=== PATIENT | female | born 1975 | race Caucasian/White ===

== ENCOUNTER 2016-04-07 16:40 | Emergency (ER) | payer MEDICAID ==
[~2016-04-07] VITALS: Wt 53.8 kg
[~2016-04-07 16:40] MED LIST: ACET500C5 PO; FAMO-18 PO
[2016-04-07] MEDS ORDERED: predniSONE 20 MG TAB PO STA (17:19)
[2016-04-07] MEDS ORDERED: LEVALBUTEROL (NEB) 1.25 MG/0.5 ML AMP INH STA (17:19)
[2016-04-07] MEDS ORDERED: IPRATROPIUM (NEB) 0.5 MG/2.5 ML AMP INH STA (17:19)
--- NOTE | 2016-04-07 17:26 | ERD ---
ER Documentation Chief Complaint Date/Time DATE: 04/07/16 TIME: 17:23 Chief Complaint COUGH, ONSET 2 WEEKS, SOB, HX OF ASTHMA HPI This is a 40-year-old female who presents to the emergency department today complaining of a cough for the past 2 weeks. Patient states that she also has wheezing and has a history of asthma when she gets sick. States she went to her doctor who gave her Cipro for possible pneumonia. Denies any fevers or chills. ROS All systems reviewed and are negative except as per history of present illness. Medications Home Meds Active Scripts Guaifenesin-Dextromethorphan* (Robitussin* DM) 100MG/10MG/5ML Syrup, 10 ML PO Q6H Y for COUGH for 5 Days, ML Prov:DESI PEREZ PA-C 04/07/16 Azithromycin* (Zithromax*) 250 Mg Tablet, 250 MG PO .ZPACK DIRECTED, #6 TAB TAKE 500 MG (2 TABS) THE FIRST DAY THEN 250 MG (1 TAB) DAYS 2-5 Prov:DESI PEREZ PA-C 04/07/16 Prednisone* (Prednisone*) 20 Mg Tab, 40 MG PO DAILY for 4 Days, TAB Prov:DEIS PEREZ PA-C 04/07/16 Albuterol Sulfate* (Proair HFA*) 8.5 Gm Hfa.aer.ad, 2 PUFF INH Q4, #1 INHALER Prov:DESI PEREZ PA-C 04/07/16 Famotidine* (Pepcid*) 20 Mg Tablet, 20 MG PO BID for 10 Days, #20 TAB Prov:ERIC CHRISTIANSON MD 09/08/15 Acetaminophen* (Tylophen*) 500 Mg Capsule, 1 CAP PO Q6H Y for PAIN AND OR ELEVATED TEMP, #16 CAP Prov:ERIC CHRISTIANSON MD 09/08/15 Reported Medications [none] Unknown Strength No Conflict Check 06/05/15 Allergies Allergies: Coded Allergies: No Known Allergy (Unverified , 03/02/14) PMhx/Soc Medical and Surgical Hx: pt denies Medical Hx, pt denies Surgical Hx History of Surgery: No Anesthesia Reaction: No Hx Neurological Disorder: No Hx Respiratory Disorders: No Hx Cardiac Disorders: No Hx Psychiatric Problems: No Hx Miscellaneous Medical Probl: No Hx Alcohol Use: No Hx Substance Use: No Hx Tobacco Use: No Smoking Status: Never smoker Physical Exam Vitals Vital Signs Date Time Temp Pulse Resp B/P Pulse Ox O2 Delivery O2 Flow Rate FiO2 04/07/16 17:30 91 21 95 21 04/07/16 16:42 97.7 123 18 150/63 97 Physical Exam Const: No acute distress Head: Atraumatic Eyes: Normal Conjunctiva ENT: Ears TMs normal. Nose no drainage. Throat no erythema no exudate. Neck: Full range of motion..~ No meningismus. Resp: Diffuse wheezing bilaterally in all lung jaquez. Cardio: Regular rate and rhythm, no murmurs Abd: Soft, non tender, non distended. Normal bowel sounds Skin: No petechiae or rashes Ext: No cyanosis, or edema. No calf pain. Neur: Awake and alert Psych: Normal Mood and Affect Results 24 hrs Current Medications Medications (Trade) Dose Ordered Sig/Laureen Route PRN Reason Start Time Stop Time Status Last Admin Dose Admin Levalbuterol (Xopenex Neb) 5 mg ONCE STAT INH 04/07/16 17:19 04/07/16 17:21 DC 04/07/16 17:27 Ipratropium [place] (Atrovent 0.02% (Neb)) 1 mg ONCE STAT INH 04/07/16 17:19 04/07/16 17:21 DC 04/07/16 17:26 Prednisone (Prednisone) 60 mg ONCE STAT PO 04/07/16 17:19 04/07/16 17:21 DC 04/07/16 17:30 DIAGNOSTIC IMAGING REPORT Patient: GERALD PAREKH : 1975 Age: 40 Sex: F MR #: [id number] DOS: 04/07/16 1719 Ordering MD: DESI PEREZ PA-C Location: [facility] Room/Bed: PROCEDURE: XR Chest. CLINICAL INDICATION: Asthma/exacerbation TECHNIQUE: Chest AP portable. COMPARISON: No comparison available. FINDINGS: The mediastinal structures are unremarkable. The heart is normal in size and configuration. The pulmonary vascularity is normal. The lung jaquez are unremarkable. No consolidation is identified. The pleural spaces are unremarkable. The axial skeleton is unremarkable. IMPRESSION: No active intrathoracic disease. RPTAT: HGDB .Nolan Vang MD, Date Time Electronically viewed and signed by .Nolan Vang MD, on 04/07/2016 17:54 .B/ CC: DESI PEREZ PA-C Procedures/MDM This a 40-year-old female who presents to the emergency department today complaining of cough for the past 2 weeks. Patient did see her primary care doctor who gave her Cipro to treat possible pneumonia. I saw this patient in the rapid medical evaluation area and she had wheezing on physical exam therefore I did do a full workup on her as well as give the patient a 1 hour continuous breathing treatment in addition to prednisone.. Chest x-ray is negative. Low suspicion for PE, pleural effusion, abscess. Patient is afebrile and her oxygen saturation is 97%. She is tachycardic at 123. Patient symptoms and wheezing were completely resolved after breathing treatment. Patient symptoms at this time was consistent with acute asthma exacerbation versus chronic bronchitis versus viral URI. Patient was given a prescription for azithromycin, short course of prednisone as well as an inhaler and Robitussin for cough. At this time the patient is stable for discharge and outpatient management. Patient should follow up with their PCP in the next 1-2 days. They may return to the emergency department sooner for any persistent or worsening of symptoms. Patient understood and agreed with the plan. Departure Diagnosis: Primary Impression: Cough Condition: Fair DESI PEREZ PA-C Apr 07, 2016 17:26
--- NOTE | 2016-04-07 17:55 | RADRPT ---
PROCEDURE: XR Chest. CLINICAL INDICATION: Asthma/exacerbation TECHNIQUE: Chest AP portable. COMPARISON: No comparison available. FINDINGS: The mediastinal structures are unremarkable. The heart is normal in size and configuration. The pu lmonary vascularity is normal. The lung jaquez are unremarkable. No consolidation is identified. The pleural spaces are unremarkable. The axial skeleton is unremarkable. IMPRESSION: No active intrathoracic disease. RPTAT: HGDB .Nolan Vang MD, MD Date Time Electronically viewed and signed by .Nolan Vang MD, MD on 04/07/2016 17:54 .B/
[2016-04-07] MEDS ORDERED: ALBU8.5H3 INH (18:34)
[2016-04-07] MEDS ORDERED: AZIT250T94 PO (18:34)
[2016-04-07] MEDS ORDERED: PRED20TA PO (18:34)
[2016-04-07] MEDS ORDERED: UDROBDM PO (18:36)
[2016-04-07 18:42] VITALS: BP 136/79; PULSE 99; RESP 19
== END 2016-04-07 18:43 | disposition home or self-care (01) ==
LOC: FTE 16:40
DX: R05 Cough (principal)
CPT/HCPCS: 71010; 94644; J7512; Z7502; Z7610

== ENCOUNTER 2017-03-02 20:23 | Emergency (ER) | END 2017-03-03 01:22 | disposition home or self-care (01) ==

== ENCOUNTER 2017-03-30 08:14 | Emergency (ER) | END 2017-03-30 11:03 | disposition home or self-care (01) ==

== ENCOUNTER 2018-02-13 15:38 | Emergency (ER) | END 2018-02-13 16:20 | disposition home or self-care (01) ==

== ENCOUNTER 2018-07-17 17:50 | Emergency (ER) | payer MEDICAID ==
[~2018-07-17] VITALS: Ht 152.4 cm; Wt 57.1 kg
[2018-07-17 17:51] VITALS: BP 162/93; PULSE 133; RESP 18; Ht 152.4 cm; Wt 57.1 kg
[2018-07-17] MEDS ORDERED: IPRATROPIUM (NEB) 0.5 MG/2.5 ML AMP NEB STA (18:29)
[2018-07-17] MEDS ORDERED: predniSOLONE (3 MG/ML) CUP PO STA (18:29)
[2018-07-17] MEDS ORDERED: ALBUTEROL 0.083% (NEB) 2.5 MG/3 ML AMP NEB STA (18:29)
--- NOTE | 2018-07-17 18:43 | ERD ---
ER Documentation Chief Complaint Chief Complaint flu symptoms, fever, sore throat X 1 day HPI 43-year-old female with past medical history of mild intermittent asthma who presents with complaint of fever, sore throat, shortness of breath, URI type symptoms. Patient states symptoms started about 2 weeks ago with progressively worsening over that time. Cough is dry cough, also with complaint of intermittent headache, generalized body aches. Has tried albuterol without much improvement in her symptoms. She otherwise denies chest pain, nausea, vomiting, diarrhea, abdominal pain, urinary symptoms. Currently breast-feeding young infant. ROS All systems reviewed and are negative except as per history of present illness. Medications Home Meds Active Scripts Prednisone* (Prednisone*) 20 Mg Tab, 40 MG PO DAILY for 4 Days, TAB Prov:BING SANCHEZ PA-C 07/17/18 Allergies Allergies: Coded Allergies: No Known Allergy (Unverified , 02/25/18) PMhx/Soc History of Surgery: Yes (gallbladder sx) Anesthesia Reaction: No Hx Neurological Disorder: No Hx Respiratory Disorders: Yes (asthma) Hx Cardiac Disorders: No Hx Psychiatric Problems: No Hx Miscellaneous Medical Probl: No Hx Alcohol Use: No Hx Substance Use: No Hx Tobacco Use: No Smoking Status: Never smoker FmHx Family History: No diabetes, No coronary disease, No other Physical Exam Vitals Vital Signs Date Temp Pulse Resp B/P (MAP) Pulse Ox O2 O2 Flow FiO2 Time Delivery Rate 07/17/18 99.4 20:00 07/17/18 112 20 94 21 19:22 07/17/18 100.8 133 18 162/93 93 17:51 (116) Physical Exam Const: No acute distress Head: Atraumatic Eyes: Normal Conjunctiva ENT: Normal External Ears, Nose and Mouth. Neck: Full range of motion. No meningismus. Resp: Clear to auscultation bilaterally Cardio: Regular rate and rhythm, no murmurs Abd: Soft, non tender, non distended. Normal bowel sounds Skin: No petechiae or rashes Back: No midline or flank tenderness Ext: No cyanosis, or edema Neur: Awake and alert Psych: Normal Mood and Affect Results 24 hrs Laboratory Tests Test 07/17/18 18:55 Urine Color YELLOW Urine Clarity CLEAR Urine pH 5.0 Urine Specific [place] 1.013 Urine Ketones NEGATIVE mg/dL Urine Nitrite NEGATIVE mg/dL Urine Bilirubin NEGATIVE mg/dL Urine Urobilinogen NEGATIVE mg/dL Urine Leukocyte Esterase NEGATIVE Thee/ul Urine Hemoglobin NEGATIVE mg/dL Urine Glucose NEGATIVE mg/dL Urine Total Protein NEGATIVE mg/dl Current Medications Medications Dose Sig/Laureen Start Time Status Last (Trade) Ordered Route PRN Stop Time Admin Dose Reason Admin Albuterol 2.5 mg ONCE STAT 07/17/18 DC 07/17/18 (Proventil NEB 18:29 19:21 0.083% (Neb)) 07/17/18 18:38 Ipratropium 0.5 mg ONCE STAT 07/17/18 DC 07/17/18 [place] NEB 18:29 19:21 (Atrovent 07/17/18 18:38 0.02% (Neb)) 114 mg ONCE STAT 07/17/18 DC Prednisolone PO 18:29 (Prelone) 07/17/18 18:43 Prednisone 40 mg ONCE ONCE 07/17/18 DC 07/17/18 (Prednisone) PO 19:00 19:23 07/17/18 19:01 Procedures/MDM Presents with cough and expiratory wheezing ML 2/2 asthma exacerbation. Also with URI type symptoms. Mild exacerbation: No AMS, silent respirations, belly-breathing, or other sign of impending ventilatory failure. Patient diagnosed with asthma years prior. Never intubated or admitted to the hospital for asthma exacerbation. Unlikely PNA, CHF, COPD (Nonsmoker), FBAO, GERD. Workup Defer labs and imaging given clinically in exacerbation of known asthma with similar exacerbation presentations per patient. Therapies: Prednisone 40 mg PO. Albuterol 2.5-5mg q20min x3 OR 15mg/hr Ipratropium 0.5mg x1 X-ray of chest Influenza A&B Reassessment: Patient improved with albuterol and ipratropium in less than 3 hours. Disposition: Discharge home with return precautions. Aside from this acute exacerbation patient has been well controlled on baseline home regimen. Rx short steroid course, no plan to increase home asthma regimen. Advised to follow up with primary care physician within next 24-48 hours. Departure Condition: Stable BING SANCHEZ PA-C July 17, 2018 18:43
[2018-07-17] MEDS ORDERED: predniSONE 20 MG TAB PO ONE (19:00)
[2018-07-17] MEDS ORDERED: METH16TA PO (19:48)
[2018-07-17] MEDS ORDERED: PRED20TA PO (19:51)
== END 2018-07-17 20:06 | disposition home or self-care (01) ==
LOC: FTE 17:50
DX: J45.901 Unspecified asthma with (acute) exacerbation (principal)
CPT/HCPCS: 71046; 81003; 87400; 94664; J7512; Z7502; Z7610